=== PATIENT | male | born 1970 ===

== ENCOUNTER 2018-06-28 08:04 | Outpatient (CLI) | payer OTHER ==
[~2018-06-28] VITALS: Ht 152.4 cm; Wt 94.3 kg
== END 2018-06-28 08:20 | disposition home or self-care (01) ==
LOC: OFIC 805 08:04
DX: H61.23 Impacted cerumen, bilateral (principal); H60.92 Unspecified otitis externa, left ear; H60.8X3 Other otitis externa, bilateral

== ENCOUNTER → 2018-07-04 18:45 | Outpatient (CLI) | payer OTHER ==
[~2018-07-04] VITALS: Ht 152.4 cm; Wt 94.3 kg
== END | disposition home or self-care (01) ==
LOC: OFIC 805 13:45
DX: H60.8X2 Other otitis externa, left ear (principal); H61.23 Impacted cerumen, bilateral

== ENCOUNTER 2018-07-11 14:04 | Outpatient (CLI) | payer OTHER ==
[~2018-07-11] VITALS: Ht 152.4 cm; Wt 94.3 kg
== END 2018-07-11 14:20 | disposition home or self-care (01) ==
LOC: OFIC 805 14:04
DX: H60.8X2 Other otitis externa, left ear (principal)